=== PATIENT | male | born 1970 | race Caucasian/White ===

== ENCOUNTER 2016-08-20 12:38 | Emergency (ER) | payer BC ==
[2016-08-20 12:46] VITALS: BP 125/64
--- NOTE | 2016-08-20 12:53 | EDM.PDOC ---
ED HPI SEIZURE COMPLAINT - General Chief Complaint: Syncope Stated Complaint: [facility] Time Seen by Provider: 08/20/16 12:48 Source of Information: Reports: Patient History Limitations: Reports: No limitations - History of Present Illness INITIAL COMMENTS - FREE TEXT/NARRATIVE: 46-year-old male brought to the ED per ambulance after syncopal event while having venipuncture at [facility] this afternoon. Patient to return to clinic as he's not been feeling well for the last several days. Running a temperature 100.1 degrees. Has a dry hacking cough. [place] his sinuses and are congested. No appetite. It sounds like a syncopal event while seated during the venipuncture. This is never happened before. There is some suggestion of seizure -like activity but this was more in reemergence phenomenon as he regained consciousness. He can speak right away and there was no seizure activity. At present he is diaphoretic but able to answer questions quite appropriately. Apparently blood was obtained and therefore we'll not put him again for results. He has had no nausea vomiting or diarrhea. No hemoptysis. Genitourinary complaints Symptom Onset Date: 08/16/16 Timing/Duration: Reports: day(s):, gradual onset Event Occurred (Where): other (Michael event occurred at the [facility].) Event (Witnessed/Unwitnessed): witnessed (Syncopal episode was witnessed by the tech doing the venipuncture today.) Quality: Reports: other (Small amount of jerking occurred as he regained consciousness called the reemergence of dominant.) Severity: mild Context: Reports: illness (Is been ill recently with fever and chills and productive cough). Denies: recent ETOH, new/change in medications, missed med dose(s), photo stimulation, activity/exercise Pre Event Symptom(s): Reports: fever/chills Event Symptoms: Reports: weakness, diaphoresis, malaise. Denies: tongue biting , confusion, headaches, syncope, chest pain, cough, fever/chills, loss of appetite, nausea/vomiting, rash, shortness of breath, other Post Event Symptoms: Reports: confused (Very transiently. He can speak normally within moments of the event.), other (No clinical evidence of seizure.) Associated Injuries: Reports: other (No injuries occurred as he remains seated in the chair) Treatments MEDICAL STAFF COORDINATOR: Reports: Other (see below) ( reason is receiving venipuncture.) - Related Data Allergies/ADRs: Allergies Allergy/AdvReac Type Severity Reaction Status Date / Time No Known Allergies Allergy Verified 08/20/16 12:50 Home Meds: Home Meds Cetirizine HCl [Zyrtec] 10 mg PO ASDIRECTED 08/20/16 [History] Hydrocodone/Chlorphen P-Stirex [Tussionex Pennkinetic Susp] 5 ml PO Q12H PRN # 50 ml 08/20/16 [Rx] Social & Family History - Living Situation & Occupation Living situation: Reports: Occupation: employed ED ROS GENERAL - Review of Systems Review Of Systems: See Below Constitutional: Reports: fever, chills, malaise, weakness, fatigue, decreased appetite (Last 4-5 days.) HEENT: Reports: Ear pain, Sinus problem (Some ear discomfort bilaterally.) Respiratory: Reports: Cough ( Sinuses are congested.). Denies: Shortness of Breath, Wheezing ( accessible nonproductive cough. ) Cardiovascular: Reports: Chest pain. Denies: Dyspnea on exertion, Lightheadedness Endocrine: Reports: fatigue GI/Abdominal: Reports: Decreased appetite. Denies: Diarrhea, Nausea, Vomiting : Reports: no symptoms Musculoskeletal: Reports: no symptoms Skin: Reports: no symptoms Neurological: Reports: No Symptoms Psychiatric: Reports: No symptoms Hematologic/Lymphatic: Reports: no symptoms - Physical Exam Exam: See Below Exam Limited By: No limitations General Appearance: alert, anxious, mild distress, other (He is diaphoretic to touch.) Ears: normal TMs Throat/Mouth: Normal inspection, Normal lips, Normal teeth, Normal oropharynx Head Exam: atraumatic, normocephalic Neck: normal inspection, supple, non-tender, full range of motion. No: lymphadenopathy (R) Respiratory/Chest: no respiratory distress, lungs clear, normal breath sounds, no accessory muscle use Cardiovascular: normal peripheral pulses, regular rate, rhythm, no edema, no murmur GI/Abdominal: normal bowel sounds, soft, non tender, no organomegaly, no abnormal bruit, no mass (Male) Exam: No hernia, Normal inspection Neuro Exam (Abbreviated): alert, oriented, CN II-XII intact, normal cognition, normal gait, normal reflexes, no motor/sensory deficits Extremities: normal inspection, normal range of motion, non-tender, no pedal edema, normal capillary refill Psychiatric: normal affect, normal mood Skin Exam: Cool (Mild), Diaphoretic EKG INTERPRETATION EKG Date: 08/20/16 Time: 12:50 Rhythm: NSR Rate (beats/min): 62 [place]: LAD-left axis deviation (-40 left anterior fascicular block) P-wave: present QRS: normal ST-T: other (T wave inverted in lead 3 flat in aVF which is nonspecific.) Course - Vital Signs Last Recorded V/S: Last Vital Signs Temp 35.9 C 08/20/16 12:44 Pulse 60 08/20/16 12:44 Resp 20 08/20/16 12:44 BP 125/64 08/20/16 12:44 Pulse Ox 97 08/20/16 12:44 - Orders/Labs/Meds Orders: Active Orders 24 hr Category Date Time Status Chest 1V Frontal [CR] Stat Exams 08/20/16 12:47 Taken - Radiology Interpretation Free Text/Narrative:: 46-year-old male presents the ED after suffering a syncopal event during venipuncture over to [facility]. There was some concern raised about a seizure although the activity exposure was more of a reemergence of innominate after he regained consciousness. He simply fainted venipuncture. He is at the time he did not receive any injuries. Apparently blood was obtained for tests. We put him at this time. He is diaphoretic he would drink some Gatorade here. He had been feeling well for the last 3-4 days with febrile illness sinus congestion and nonproductive cough. He is afebrile time eye exam. Benign abdominal examination chest is clear plan influenza screen and one view chest x- ray to be obtained. - Re-Assessments/Exams Free Text/Narrative Re-Assessment/Exam: 08/20/16 14:32 chest x-ray is negative for any pneumonia. Influenza screen came back positive for the type a virus. We did see receive the lab work that was carried out at [facility]. White count was 3.57 hemoglobin 14.8 hematocrit 44.4 platelets 169,000. Differential 60% neutrophils. Chemistry showed a glucose of 98 a BUN of 20 creatinine was 1.0 sodium 140 potassium 4.3. Protonix 2. Bicarbonate 24. Anion gap is 18 with normal in their lab up to 20. Calcium is normal at 9.4. Liver function revealed a AST of 48 and ALT of 60 both within normal limits. The TSH they did order was not available yet. Patient was advised that he would not necessarily benefit from chemotherapy this time since she's been ill longer than 48 hours. However his family members his and 2 male children are interested in prophylaxis. Therefore the 2 children were placed on 60 mg once daily for 10 days was placed and 75 mg tablets once daily for 10 days. He'll continue plenty of fluids. Motrin 600 mg every 6 hours as necessary for pain relief. Tussionex cough syrup was prescribed 5 mils every 12 hours when necessary for cough relief. Follow with his personal DrLay if any further problems occur. Departure - Departure Time of Disposition: 14:04 Disposition: Home, Self-Care 01 Condition: fair Clinical Impression: Influenza A, Fainting spell Prescriptions: Hydrocodone/Chlorphen P-Stirex [Tussionex Pennkinetic Susp] 5 ml PO Q12H PRN # 50 ml PRN Reason: Cough relief Instructions: Influenza, Adult, [id number], Vasovagal Syncope, Adult Referrals: PCP,None [Primary Care Provider] - Forms: ED Department Discharge Additional Instructions: Evaluation in the emergency in regards to a fainting episode that occurred at [facility] this afternoon while you were having blood work obtained. There was some concern about the development of a seizure but this is called a reemergence phenomena where rejected get a little bit as her brain is waking up after we pain. There is no evidence she suffered a seizure. He can tell occurred primarily because you've been feeling unwell for the last several days and had not been able to eat normally the last several days. I did wait and obtain the lab work from the clinic and it essentially was all normal. X-ray done here was negative for pneumonia. Influenza screen was positive power for the type a virus. Since the illness started greater than 48 hours ago he would not benefit from antiviral medication at this time. Treatment is plenty of fluids. Diet as able. Motrin 600 mg every 6 hours as needed for relief of body ache, fever and headache. I did write a prescription for cough syrup if needed is called Tussionex. 5 mils every 12 hours as necessary to control cough has a couple likely last close to 2 weeks. The true fluid illness usually last about 4 /2 days of fever chills body aches and headache. He is usually a tremendous loss of appetite with this illness for the last 4/2 days as well. Follow up with your personal physician if any further problems occur. - My Orders Last 24 Hours: My Active Orders 08/20/16 12:47 Chest 1V Frontal [CR] Stat - Assessment/Plan Last 24 Hours: My Active Orders 08/20/16 12:47 Chest 1V Frontal [CR] Stat
--- NOTE | 2016-08-22 08:02 | CR ---
Chest: Frontal view of the chest was obtained utilizing portable technique. Comparison: No previous study. Heart size and mediastinum are normal. Lungs are clear. Bony structures are grossly intact. Impression: 1. Nothing acute is identified on portable chest x-ray. Diagnostic code #1
== END 2016-08-20 14:18 | disposition home or self-care (01) ==
LOC: JD.ED 12:38
DX: R55 Syncope and collapse (principal); J10.1 Influenza due to other identified influenza virus with other respiratory manifestations
CPT/HCPCS: 71010; 71010-26; 87804; 99284

== ENCOUNTER 2019-07-31 11:50 | Emergency (ER) | payer BC, OTHER ==
[2019-07-31 12:02] VITALS: BP 176/110; PULSE 89
[2019-07-31] MEDS ORDERED: Sodium Chloride 0.9% 10 ML Syringe FLUSH PRN (12:33)
[2019-07-31] MEDS ORDERED: Metoclopramide 10 MG/2 ML SDV IVPUSH ONE (12:33)
[2019-07-31] MEDS ORDERED: Ketorolac 30 MG/ML SDV IVPUSH ONE (12:34)
[2019-07-31] MEDS ORDERED: diphenhydrAMINE 50 MG/ML SDV IVPUSH ONE (12:34)
--- NOTE | 2019-07-31 12:37 | EDM.PDOC ---
<Mery Kelsey - Last Filed: 07/31/19 12:23> ED HPI GENERAL MEDICAL PROBLEM - General Chief Complaint: Cardiovascular Problem Stated Complaint: HIGH BLOOD PRESSURE Time Seen by Provider: 07/31/19 12:15 Source of Information: Reports: Patient History Limitations: Reports: No Limitations - History of Present Illness INITIAL COMMENTS - FREE TEXT/NARRATIVE: Patient is a pleasant 49-year-old male who presents to the ED with his for complaints of a constant headache and elevated blood pressure. Patient states the headache started on Monday night, today is Monday, and has been a constant throbbing sensation that has varied in severity, ranging anywhere from 2-9/10. The headache was the worst over the weekend and he tried Immitrex, Excedrin Extra Strength, and Ibuprofen with no relief. He states the Excedrin may have taken the edge off the pain for about an hour or two, but then it would return to normal. On Monday he went to his Chiropractor to get his neck adjusted to see if it would help, he reports it did not help with the pain. He went back to the Chiropractor this morning for another adjustment. The chiropractor checked his blood pressure and found it to be in the 170s systolically. He was told to go to the walk-in clinic. At the walk-in clinic his blood pressure was 180/115 on arrival and was sent here. His blood pressure upon arrival is 176/110. He denies a history of high blood pressure, migraine headaches, and cardiac history. Denies chest pain, shortness of breath, abdominal pain, and fever/chills. Denies changes in vision and blurry vision. Of note, the patient states the headache pain improved while he was outside doing chores yesterday and then when he came back into the house to rest the headache would return. Headache Pain Score (Numeric/FACES): 3 - Related Data Allergies Allergy/AdvReac Type Severity Reaction Status Date / Time No Known Allergies Allergy Verified 07/31/19 12:00 Home Meds: Home Meds . [No Known Home Meds] 07/31/19 [History] Past Medical History HEENT History: Reports: Impaired Vision Cardiovascular History: Reports: Hypertension Respiratory History: Reports: None Other Respiratory History: seasonaal alleriges Genitourinary History: Reports: None Musculoskeletal History: Reports: None Neurological History: Reports: None Psychiatric History: Reports: None Endocrine/Metabolic History: Reports: Obesity/BMI 30+ Hematologic History: Reports: None Immunologic History: Reports: None Oncologic (Cancer) History: Reports: None Dermatologic History: Reports: None - Infectious Disease History Infectious Disease History: Reports: None - Past Surgical History GI Surgical History: Reports: Appendectomy Social & Family History - Caffeine Use Caffeine Use: Reports: Soda - Recreational Drug Use Recreational Drug Use: No - Living Situation & Occupation Living situation: Reports: Occupation: Employed ED ROS GENERAL - Review of Systems Review Of Systems: See Below Constitutional: Reports: No Symptoms. Denies: Fever, Chills, Weakness, Fatigue , Decreased Appetite HEENT: Reports: No Symptoms. Denies: Ear Pain, Eye Pain, Sinus Problem, Vertigo , Vision Change Respiratory: Reports: No Symptoms. Denies: Shortness of Breath, Cough Cardiovascular: Reports: No Symptoms. Denies: Chest Pain, Dyspnea on Exertion, Edema, Lightheadedness, Palpitations, Syncope GI/Abdominal: Reports: No Symptoms. Denies: Abdominal Pain, Diarrhea, Nausea, Vomiting : Reports: No Symptoms. Denies: Dysuria Musculoskeletal: Reports: Neck Pain (has had two chiropractor adjustments in the past 3 days). Denies: Back Pain, Muscle Pain Skin: Reports: No Symptoms. Denies: Rash, Erythema Neurological: Reports: Headache. Denies: Dizziness, Numbness, Syncope, Tingling , Weakness (left side) Psychiatric: Reports: No Symptoms ED EXAM, GENERAL - Physical Exam Exam: See Below Exam Limited By: No Limitations General Appearance: Alert, WD/WN, No Apparent Distress Head: Atraumatic, Normocephalic Neck: Normal Inspection, Supple, Non-Tender, Full Range of Motion Respiratory/Chest: No Respiratory Distress, Lungs Clear, Normal Breath Sounds, No Accessory Muscle Use, Chest Non-Tender Cardiovascular: Normal Peripheral Pulses, Regular Rate, Rhythm, No Edema, No Gallop, No Murmur, No Rub GI/Abdominal: Normal Bowel Sounds, Soft, Non-Tender, No Organomegaly, No Distention, No Mass Back Exam: Normal Inspection, Full Range of Motion. No: CVA Tenderness (L), CVA Tenderness (R), Paraspinal Tenderness, Vertebral Tenderness Extremities: Normal Inspection, Normal Range of Motion, Non-Tender, Normal Capillary Refill, No Pedal Edema Neurological: Alert, Oriented, CN II-XII Intact, Normal Cognition, Normal Gait, No Motor/Sensory Deficits Psychiatric: Normal Affect, Normal Mood Skin Exam: Warm, Dry, Intact, Normal Color, No Rash Course - Vital Signs Last Recorded V/S: Last Vital Signs Temp 98.5 F 07/31/19 11:56 Pulse 89 07/31/19 11:56 Resp 16 07/31/19 11:56 BP 176/110 H 07/31/19 11:56 Pulse Ox 98 07/31/19 11:56 - Orders/Labs/Meds Orders: Active Orders 24 hr Category Date Time Status Peripheral IV Care [RC] . DIRECTED Care 07/31/19 12:33 Active Sodium Chloride 0.9% [Saline Flush] Med 07/31/19 12:33 Active 10 ml FLUSH ASDIRECTED PRN Peripheral IV Insertion Adult [OM.PC] Stat Oth 07/31/19 12:33 Ordered Medication Orders Sodium Chloride (Saline Flush) 10 ml FLUSH ASDIRECTED PRN PRN Reason: Keep Vein Open Last Admin: 07/31/19 13:07 Dose: 10 ml Labs: Laboratory Tests 07/31/19 07/31/19 Range/Units 12:57 12:57 WBC 6.55 (4.23-9.07) K/mm3 RBC 5.25 (4.63-6.08) M/mm3 Hgb 14.4 (13.7-17.5) gm/dl Hct 41.8 (40.1-51.0) % MCV 79.6 (79.0-92.2) fl MCH 27.4 (25.7-32.2) pg MCHC 34.4 (32.2-35.5) g/dl RDW Std Deviation 39.5 (35.1-43.9) fL Plt Count 252 (163-337) K/mm3 MPV 9.2 L (9.4-12.3) fl Neut % (Auto) 64.9 (34.0-67.9) % Lymph % (Auto) 25.8 (21.8-53.1) % [place] % (Auto) 6.7 (5.3-12.2) % Eos % (Auto) 2.3 (0.8-7.0) Baso % (Auto) 0.3 (0.1-1.2) % Neut # (Auto) 4.25 (1.78-5.38) K/mm3 Lymph # (Auto) 1.69 (1.32-3.57) K/mm3 [place] # (Auto) 0.44 (0.30-0.82) K/mm3 Eos # (Auto) 0.15 (0.04-0.54) K/mm3 Baso # (Auto) 0.02 (0.01-0.08) K/mm3 Sodium 142 (136-145) mEq/L Potassium 4.0 (3.5-5.1) mEq/L Chloride 104 (98-107) mEq/L Carbon Dioxide 27 (21-32) mEq/L Anion Gap 15.0 (5-15) BUN 12 (7-18) mg/dL Creatinine 1.1 (0.7-1.3) mg/dL Est Cr Clr Drug Dosing 92.81 mL/min Estimated GFR (MDRD) > 60 (>60) mL/min BUN/Creatinine Ratio 10.9 L (14-18) Glucose 95 (74-106) mg/dL Calcium 9.0 (8.5-10.1) mg/dL Total Bilirubin 0.4 (0.2-1.0) mg/dL AST 23 (15-37) U/L ALT 42 (16-63) U/L Alkaline Phosphatase 81 (46-116) U/L Total Protein 8.1 (6.4-8.2) g/dl Albumin 4.5 (3.4-5.0) g/dl Globulin 3.6 gm/dL Albumin/Globulin Ratio 1.3 (1-2) Meds: Medications Generic Name Dose Route Start Last Admin Trade Name Freq PRN Reason Stop Dose Admin Sodium Chloride 10 ml 07/31/19 12:33 07/31/19 13:07 Saline Flush FLUSH 10 ml ASDIRECTED PRN Administration Keep Vein Open Discontinued Medications Generic Name Dose Route Start Last Admin Trade Name Freq PRN Reason Stop Dose Admin Diphenhydramine HCl 50 mg 07/31/19 12:34 07/31/19 13:00 Benadryl IVPUSH 07/31/19 12:35 50 mg ONETIME ONE Administration Ketorolac Tromethamine 30 mg 07/31/19 12:34 07/31/19 13:06 Toradol IVPUSH 07/31/19 12:35 30 mg ONETIME ONE Administration Metoclopramide HCl 10 mg 07/31/19 12:33 07/31/19 13:04 Reglan IVPUSH 07/31/19 12:34 10 mg ONETIME ONE Administration Departure - Departure Disposition: Home, Self-Care 01 Clinical Impression: Headache Qualifiers: Headache type: unspecified Headache chronicity pattern: acute headache Intractability: not intractable Qualified Code(s): R51 - Headache Referrals: PCP,None [Primary Care Provider] - Forms: ED Department Discharge Additional Instructions: Check your blood pressure a few times this week. Follow up with your doctor within a week. Please return if you are worse. Sepsis Event Note - Evaluation Sepsis Screening Result: No Definite Risk - Focused Exam Vital Signs: Vital Signs Temp Pulse Resp BP Pulse Ox 07/31/19 11:56 98.5 F 89 16 176/110 H 98 Date Exam was Performed: 07/31/19 Time Exam was Performed: 12:23 - My Orders Last 24 Hours: My Active Orders 07/31/19 12:33 Peripheral IV Care [RC] . DIRECTED Sodium Chloride 0.9% [Saline Flush] 10 ml FLUSH ASDIRECTED PRN Peripheral IV Insertion Adult [OM.PC] Stat - Assessment/Plan Last 24 Hours: My Active Orders 07/31/19 12:33 Peripheral IV Care [RC] . DIRECTED Sodium Chloride 0.9% [Saline Flush] 10 ml FLUSH ASDIRECTED PRN Peripheral IV Insertion Adult [OM.PC] Stat <Milind Moore - Last Filed: 07/31/19 14:46> Course - Re-Assessments/Exams Free Text/Narrative Re-Assessment/Exam: 07/31/19 14:43 I examined the patient myself and I agree with Mery's assessment and plan. I have ordered an IV saline lock, reglan 10mg IV, toradol 30mg IV, benadryl 50mg IV, labs and a CT of his head. His labs look good. The CT of his head looks good. The headache is gone. His BP is in normal ranges. I will have him monitor his BP over the next week and see his doctor. Departure - Departure Time of Disposition: 14:50 Condition: Good Sepsis Event Note - Focused Exam Date Exam was Performed: 07/31/19 Time Exam was Performed: 14:43
--- NOTE | 2019-07-31 13:40 | CT ---
Head CT Technique: Multiple axial sections through the brain were obtained. Intravenous contrast was not utilized. Comparison: No prior intracranial imaging. Findings: Ventricles along with basal cisterns and sulci over the convexities are within normal limits for the patient's age. No abnormal parenchymal densities are seen. No evidence of intracranial hemorrhage. No midline shift or mass-effect is appreciated. Bone window settings were reviewed. Visualized paranasal sinuses show nothing acute. Visualized mastoid sinuses show nothing acute. No acute calvarial abnormality is appreciated. Impression: 1. Nothing acute is identified on noncontrast head CT study. Diagnostic code #1 This report was dictated in [place] Standard Time
== END 2019-07-31 15:05 | disposition home or self-care (01) ==
LOC: JD.ED 11:50
DX: R51 Headache (principal); I10 Essential (primary) hypertension; E66.9 Obesity, unspecified
CPT/HCPCS: 36415; 70450; 80053; 85025; 96374; 96375; 99284; J1200; J1885; J2765; 99283